=== PATIENT | female | born 1960 | race Caucasian/White ===

== ENCOUNTER → 2018-07-30 | Outpatient (CLI) | payer MEDICARE, OTHER ==
[~2018-07-30] MED LIST: ALBU3IS; ALBU3IS INH; ATOR10 PO; AZIT500 PO; BUDE6HFA INH; BUPR100 PO; DESV50 PO; FAMO20 PO; HYDACE5 PO; LISI5 PO; METF500 PO; NEOPOLDEXS OS; PENVK500 PO; PRED20 PO; SULF10OPSA OU; TIOT18 INH; ZIPR40 PO
[2018-07-30 14:47] LABS: Appearance, Urine Cloudy (Clear); Bilirubin, Urine Neg (Neg); Blood, Urine 4+ (Neg); Color, Urine Yellow (P-Yellow); Glucose Qualitative, Urine Neg (Neg); Ketones, Urine Neg (Neg); Leukocyte Esterase, Urine 3+ (Neg); Nitrite, Urine Pos (Neg); Protein, Urine 2+ (Neg); Specific Gravity, Urine 1.015 (1.003-1.022); Urobilinogen, Urine NORM (Normal); pH, Urine 6.5 (5.0-8.0)
[2018-07-30 15:24] LABS: White Blood Cells, Urine 25-50 /hpf (0-5)
[2018-07-30 15:25] LABS: Bacteria Many /hpf; Red Blood Cells, Urine 0-2 /hpf (0-2); Squamous Epithelial Cells Few /hpf (Few)
== END | disposition home or self-care (01) ==
LOC: LAB 14:07 → LAB SHORT 14:07
DX: N39.0 Urinary tract infection, site not specified (principal)
CPT/HCPCS: 81001; 87077; 87086; 87186

== ENCOUNTER 2018-11-07 07:07 | Day surgery (SDC) | payer MEDICARE, OTHER ==
--- NOTE | 2018-11-07 07:51 | NUR ---
History, Chart, Medications and Allergies reviewed before start of procedure. Patient States Post-Procedure ride home has been arranged. Patient states colon prep results clear.
--- NOTE | 2018-11-07 08:28 | NUR ---
11/07/18 0827 Faisal Napoles History, Chart, Medications and Allergies reviewed before start of procedure.MONITOR INTACT WITH CONTINUOUS PULSE OXIMETRY AND INTERMITTENT BP.3-LEAD EKG REVIEWED WITH PHYSICIAN PRIOR TO START OF PROCEDURE.O2 VIA N/C INTACT THROUGHOUT SEDATION/PROCEDURE. Patient confirms NPO status and agrees with scheduled surgery.See Anesthesia record.
--- NOTE | 2018-11-07 09:09 | NUR ---
Discharge instructions reviewed with patient. Patient verbalizes understanding. Copy given to patient to take home. Discharged via wheelchair to private car for ride home.
== END 2018-11-07 09:10 | disposition home or self-care (01) ==
LOC: ORSCMMR 07:07 → ORD 08:15 → ORSCMMR 09:10
PROVIDERS: Internal Medicine Gastroenterology
PROC: 0DBP8ZX Excision of Rectum, Via Natural or Artificial Opening Endoscopic, Diagnostic (ICD-10-PCS; principal; 2018-11-07 08:15)
PROC: 0DBN8ZX Excision of Sigmoid Colon, Via Natural or Artificial Opening Endoscopic, Diagnostic (ICD-10-PCS; principal; 2018-11-07 08:15)
DX: Z12.11 Encounter for screening for malignant neoplasm of colon (principal); D12.5 Benign neoplasm of sigmoid colon; D12.8 Benign neoplasm of rectum; K63.5 Polyp of colon; J44.9 Chronic obstructive pulmonary disease, unspecified; I10 Essential (primary) hypertension; G47.33 Obstructive sleep apnea (adult) (pediatric); E11.9 Type 2 diabetes mellitus without complications; E66.01 Morbid (severe) obesity due to excess calories; Z68.43 Body mass index [BMI] 50.0-59.9, adult; Z79.899 Other long term (current) drug therapy
CPT/HCPCS: 82947; 88305; J2704; J7120

== ENCOUNTER → 2019-02-19 | Outpatient (CLI) | payer MEDICARE, OTHER ==
[2019-02-19 12:49] LABS: Source, Urine Clean Catch
[2019-02-19 13:11] LABS: Appearance, Urine Hazy (Clear); Bilirubin, Urine Neg (Neg); Blood, Urine 3+ (Neg); Color, Urine Yellow (P-Yellow); Glucose Qualitative, Urine Neg (Neg); Ketones, Urine 2+ (Neg); Leukocyte Esterase, Urine 3+ (Neg); Nitrite, Urine Pos (Neg); Protein, Urine 2+ (Neg); Urobilinogen, Urine 1+ (Normal)
[2019-02-19 13:46] LABS: Bacteria Many /hpf; Squamous Epithelial Cells Mod /hpf (Few); White Blood Cells, Urine 50-100 /hpf (0-5)
[2019-02-19 14:20] LABS: Creatinine, Urine Random 82.3 mg/dL (27.00-270.00); Protein, Urine Random 24.9 mg/dL (0.0-11.9)
== END | disposition home or self-care (01) ==
LOC: LAB SHORT 10:42 → LAB 10:42
PROVIDERS: Internal Medicine
DX: R80.9 Proteinuria, unspecified (principal)
CPT/HCPCS: 81001; 82570; 84156; 87077; 87086; 87186

== ENCOUNTER 2021-09-21 11:03 | Inpatient (IN) | payer MEDICARE, OTHER ==
[~2021-09-21] VITALS: Ht 165.1 cm; Wt 153.8 kg
[2021-09-21] MEDS ORDERED: LOSA50 PO (12:39)
[2021-09-21] MEDS ORDERED: FURO20 PO (12:39)
[2021-09-21] MEDS ORDERED: POTA10T PO (12:40)
[2021-09-21] MEDS ORDERED: LAMO100 PO (12:41)
[2021-09-21] MEDS ORDERED: CLON.5 PO (12:42)
[2021-09-21] MEDS ORDERED: PIOG15 PO (12:47)
[2021-09-21 13:10] LABS: Source, Urine Clean Catch
[2021-09-21 13:21] LABS: Appearance, Urine Turbid (Clear); Blood, Urine 4+ (Neg); Color, Urine Amber (P-Yellow); Glucose Qualitative, Urine Neg (Neg); Ketones, Urine 4+ (Neg); Leukocyte Esterase, Urine 3+ (Neg); Nitrite, Urine Neg (Neg); Protein, Urine 3+ (Neg); Urobilinogen, Urine 3+ (Normal)
[2021-09-21 13:45] LABS: BASOPHILS ABSOLUTE AUTO 0.05 K/mm3 (0.00-0.23); BASOPHILS PERCENT AUTO 0 % (0-2); EOSINOPHILS ABSOLUTE AUTO 0.03 K/mm3 (0.00-0.68); EOSINOPHILS PERCENT AUTO 0 % (0-6); Hematocrit 40.2 % (33.0-51.0); Hemoglobin 14.8 g/dL (11.5-16.0); IMMATURE GRAN ABSOLUTE AUTO 0.23 K/mm3 (0.00-0.10); IMMATURE GRAN PERCENT AUTO 2 % (0-1); LYMPHOCYTES ABSOLUTE AUTO 0.63 K/mm3 (0.84-5.20); LYMPHOCYTES PERCENT AUTO 4 % (21-46); MONOCYTES ABSOLUTE AUTO 0.89 K/mm3 (0.16-1.47); MONOCYTES PERCENT AUTO 6 % (4-13); Mean Corpuscular HGB 34.5 pg (26.0-34.0); Mean Corpuscular HGB Conc 36.8 g/dL (31.5-36.5); Mean Corpuscular Volume 94 fL (80-100); Mean Platelet Volume 9.6 fL (9.1-12.4); NEUTROPHILS ABSOLUTE AUTO 12.66 K/mm3 (1.96-9.15); NEUTROPHILS PERCENT AUTO 88 % (41-73); Platelet Count 300 K/mm3 (150-400); RDW Coefficient Variation 13.5 % (11.7-14.2); Red Blood Cell Count 4.29 M/mm3 (3.80-5.20); White Blood Cell Count 14.49 K/mm3 (4.00-11.30)
[2021-09-21 14:01] LABS: Alanine Aminotransfer (ALT/SGP 72 U/L (12-78); Albumin, Blood 3.5 g/dL (3.4-5.0); Albumin/Globulin Ratio 0.8 (0.8-1.8); Alk Phos 139 U/L (50-136); Anion Gap 10 mmol/L (6-16); Aspartate Aminotrans (AST/SGOT 91 U/L (12-37); Bilirubin, Total 3.1 mg/dL (0.1-1.0); Blood Urea Nitrogen 7 mg/dL (8-24); Bun/Creatinine Ratio 20.7 (12.0-20.0); CO2, Blood 30 mmol/L (21-32); Calcium, Blood 8.1 mg/dL (8.5-10.1); Chloride, Blood 72 mmol/L (98-108); Creatinine, Blood 0.34 mg/dL (0.40-1.00); Globulin, Blood 4.2 g/dL (2.2-4.0); Glomerular Filtration Rate >60 (60-); Glucose, Blood 129 mg/dL (70-99); Potassium, Blood 4.6 mmol/L (3.5-5.5); Sodium, Blood 112 mmol/L (136-145); Total Protein, Blood 7.7 g/dL (6.4-8.2)
[2021-09-21 14:08] LABS: Bilirubin, Urine 1+ (Neg)
[2021-09-21 14:10] LABS: White Blood Cells, Urine 50-100 /hpf (0-5)
[2021-09-21 14:11] LABS: Bacteria Many /hpf; Squamous Epithelial Cells Many /hpf (Few)
[2021-09-21 15:02] LABS: Albumin, Blood 3.2 g/dL (3.4-5.0); Albumin/Globulin Ratio 0.9 (0.8-1.8); Bilirubin, Direct 1.1 mg/dL (0.0-0.3); Bilirubin, Indirect 1.5 mg/dL (0.1-0.7); Bilirubin, Total 2.6 mg/dL (0.1-1.0); Globulin, Blood 3.7 g/dL (2.2-4.0); Total Protein, Blood 6.9 g/dL (6.4-8.2)
[2021-09-21 15:53] LABS: Base Excess Venous 7.5 mmol/L; Bicarbonate Venous 30.1 mmol/L (24.0-30.0); PCO2 Venous 48.8 mmHg (38-42); PO2 Venous 98.8 mmHg (38-42); pH Blood Venous 7.42 (7.34-7.37)
[2021-09-21 17:49] LABS: Albumin, Blood 3.4 g/dL (3.4-5.0); Anion Gap 9 mmol/L (6-16); Blood Urea Nitrogen 7 mg/dL (8-24); Bun/Creatinine Ratio 18.2 (12.0-20.0); CO2, Blood 27 mmol/L (21-32); Chloride, Blood 75 mmol/L (98-108); Creatinine, Blood 0.39 mg/dL (0.40-1.00); Glomerular Filtration Rate >60 (60-); Glucose, Blood 132 mg/dL (70-99); Phosphorus, Blood 2.4 mg/dL (2.5-4.9); Potassium, Blood 4.2 mmol/L (3.5-5.5); Sodium, Blood 111 mmol/L (136-145)
[2021-09-21 18:59] LABS: Influenza A, PCR NEGATIVE (NEGATIVE); Influenza B, PCR NEGATIVE (NEGATIVE); Resp Syncytial Virus, PCR NEGATIVE (NEGATIVE); SARS-Cov-2 (COVID-19) PCR, MMC NEGATIVE (NEGATIVE)
--- NOTE | 2021-09-21 19:22 | NUR ---
ASSUMPTION OF CARE: Received report from SHELLEY Howard. Pt settled into PCU. IVF started per MD order and labs collected. Pt in no apparent distress at this time. Will continue to monitor until transfer of care to oncoming RN.
[2021-09-22 01:23] LABS: Source, Urine Foley catheter
[2021-09-22 01:25] LABS: Bilirubin, Urine Neg (Neg); Blood, Urine 3+ (Neg); Glucose Qualitative, Urine Neg (Neg); Ketones, Urine 3+ (Neg); Leukocyte Esterase, Urine 3+ (Neg); Nitrite, Urine Pos (Neg); Protein, Urine 2+ (Neg); Specific Gravity, Urine 1.015 (1.003-1.022); Urobilinogen, Urine 1+ (Normal)
--- NOTE | 2021-09-22 01:28 | NUR ---
UPDATE PT REPORTS SEVERE PAIN D/T FALL. REPORTING PAIN AT 01/26. PHYSICIAN NOTIFIED. ORDERS FOR FENT 25-50 MCG PRN Q 4.
[2021-09-22 01:42] LABS: Appearance, Urine Hazy (Clear); Color, Urine Yellow (P-Yellow)
[2021-09-22 01:43] LABS: Amorphous Light (0-Heavy); Bacteria Mod /hpf; Mucus Light (0-Heavy); Red Blood Cells, Urine Rare /hpf (0-2); Squamous Epithelial Cells Not Seen /hpf (Few)
[2021-09-22 01:44] LABS: White Blood Cells, Urine TNTC /hpf (0-5)
[2021-09-22 04:50] LABS: BASOPHILS ABSOLUTE AUTO 0.02 K/mm3 (0.00-0.23); BASOPHILS PERCENT AUTO 0 % (0-2); EOSINOPHILS PERCENT AUTO 0 % (0-6); Hematocrit 37.9 % (33.0-51.0); Hemoglobin 13.7 g/dL (11.5-16.0); IMMATURE GRAN ABSOLUTE AUTO 0.19 K/mm3 (0.00-0.10); IMMATURE GRAN PERCENT AUTO 1 % (0-1); LYMPHOCYTES ABSOLUTE AUTO 0.28 K/mm3 (0.84-5.20); LYMPHOCYTES PERCENT AUTO 2 % (21-46); MONOCYTES PERCENT AUTO 2 % (4-13); Mean Corpuscular HGB 33.9 pg (26.0-34.0); Mean Corpuscular HGB Conc 36.1 g/dL (31.5-36.5); Mean Corpuscular Volume 94 fL (80-100); Mean Platelet Volume 9.1 fL (9.1-12.4); NEUTROPHILS ABSOLUTE AUTO 13.31 K/mm3 (1.96-9.15); NEUTROPHILS PERCENT AUTO 95 % (41-73); Platelet Count 297 K/mm3 (150-400); RDW Coefficient Variation 13.4 % (11.7-14.2); RDW Standard Deviation 45.8 fL (35.1-46.3); Red Blood Cell Count 4.04 M/mm3 (3.80-5.20)
[2021-09-22 05:19] LABS: Alanine Aminotransfer (ALT/SGP 63 U/L (12-78); Albumin, Blood 3.3 g/dL (3.4-5.0); Albumin/Globulin Ratio 0.9 (0.8-1.8); Alk Phos 115 U/L (50-136); Anion Gap 9 mmol/L (6-16); Aspartate Aminotrans (AST/SGOT 63 U/L (12-37); Blood Urea Nitrogen 8 mg/dL (8-24); Bun/Creatinine Ratio 18.3 (12.0-20.0); CO2, Blood 33 mmol/L (21-32); Calcium, Blood 8.2 mg/dL (8.5-10.1); Chloride, Blood 73 mmol/L (98-108); Creatinine, Blood 0.44 mg/dL (0.40-1.00); Globulin, Blood 3.8 g/dL (2.2-4.0); Glomerular Filtration Rate >60 (60-); Glucose, Blood 150 mg/dL (70-99); Potassium, Blood 4.1 mmol/L (3.5-5.5); Sodium, Blood 115 mmol/L (136-145); Total Protein, Blood 7.1 g/dL (6.4-8.2)
--- NOTE | 2021-09-22 07:33 | NUR ---
SHIFT SUMMARY PT ALERT AND ORIENTEED X 4. PT HAVING VIVID HALLUCINATIONS T/O SHIFT. PHYSICIAN AWARE. PT REPORTS [place] DURING SHIFT PHYSICIAN NOTIFIED, INSTRUCTED TO CONT TO MONITOR. PT ABLE TO TURN SELF IN BED. BED ALARM IN PLACE, PT VERY IMPULSIVE, ATTEMPTING TO GET OUT OF BED FREQUENTLY. CANNON ORDERED AND PLACED TO GRAVITY. PT TOLERATED WELL. DR. JOHNSON CONSULTED. ORDERS PLACED PER DR. JOHNSON, SEE EMAR. HR STABLE. BP STABLE. NO CP OR PRESSURE REPORTED. PT REPORTS BACK PAIN, MEDICATION ORDERED SEE EMAR. DID NOT MEDICATE, PT REPORTED TO FEEL RELIEF W/O MEDICATION. OXYGEN SATURATION MAINTAINED ABOVE 92% ON 4 L VIA NC. ORDERS FOR CPAP. PER RT NONE AVAILABLE. PT HAS EXTENSIVE BRUISING D/T FALL AT HOME. PICS IN CHART. ORDERS FOR CTA OF CHEST DURING SHIFT D/T ELEVATED D DIMER.PT TO CT DURING SHIFT CHANGE. UNABLE TO DO CT DURING SHIFT D/T PT HAVING CT SCAN DURING DAY 4/5 W/IODINE. PHYSICIAN AWARE SCAN UNABLE TO BE DONE DURING NIGHT. PT HAVING INCREASE IN HALLUCINATIONS NIGHT PROGRESSED. PHYSICIAN AWARE. REPORT GIVEN TO SHELLEY TORRE.
[2021-09-22 09:15] LABS: Potassium, Blood 3.8 mmol/L (3.5-5.5)
--- NOTE | 2021-09-22 09:35 | NUR ---
UPDATE NEPHROLOGY NOTIFIED OF 09:00 Rp=[phone]. MD ORDERED STAT NA AND K LAB TO BE DRAWN AT 12:00 TODAY, NOTIFY MD WITH RESULTS. WILL CONTINUE TO MONITOR.
--- NOTE | 2021-09-22 10:21 | NUR ---
UPDATE PT INCREASINGLY MORE LETHARGIC AND DIFFICULT TO AROUSE. ASLO, BILAT FEET APPEAR INCREASINGLY MORE DUSKY, PALPABLE PULSES PRESENT. PT IS CURRENTLY ON BIPAP. NOTIFIED- STAT ABG ORDERED. CN INFORMED OF CURRENT POC. WILL CONTINUE TO MONITOR.
[2021-09-22 10:47] LABS: PCO2 Arterial 58.4 mmHg (35-45); PO2 Arterial 57.3 mmHg (80-100); pH Blood Arterial 7.43 (7.35-7.45)
--- NOTE | 2021-09-22 12:08 | NUR ---
TRANSFER OF CARE Pt transferring to ICU. Report called to SHELLEY Matthew. Pending results from labs drawn STAT. Notified SHELLEY Matthew to report Na values to Dr. Russell before 13:00.
[2021-09-22 12:09] LABS: U Amphetamine Screen Not Detected; U Barbituate Screen Not Detected; U Benzodiazapine Screen Not Detected; U Buprenorphine Screen Not Detected; U Cannabinoids Screen Not Detected; U Cocaine Screen Not Detected; U Methadone Screen Not Detected; U Methamphetamine Screen Not Detected; U Opiates Screen Not Detected; U Oxycodone Screen Not Detected; U Phencyclidine Screen Not Detected; U Propoxyphene Screen Not Detected
[2021-09-22 12:31] LABS: Anion Gap 8 mmol/L (6-16); Blood Urea Nitrogen 8 mg/dL (8-24); Bun/Creatinine Ratio 16.8 (12.0-20.0); CO2, Blood 35 mmol/L (21-32); Calcium, Blood 8.1 mg/dL (8.5-10.1); Chloride, Blood 76 mmol/L (98-108); Creatinine, Blood 0.48 mg/dL (0.40-1.00); Glomerular Filtration Rate >60 (60-); Glucose, Blood 158 mg/dL (70-99); Potassium, Blood 3.5 mmol/L (3.5-5.5); Sodium, Blood 119 mmol/L (136-145)
--- NOTE | 2021-09-22 14:12 | NUR ---
ASSUMPTION OF CARE RECEIVED REPORT FROM TIA RN AT 1158, PATIENT ARRIVED TO UNIT AT 1230. NON-RESPONSIVE, ON BIPAP 05/04 WITH 3L 02 BLEED IN. 4 PERSON TRANSFER TO BED, PATIENT AWOKE ONCE TRANSFERRED, COMMUNICATED WITH GARBLED SPEECH AND DID NOT FOLLOW COMMANDS. WITHIN 30 MINUTES OF ARRIVING TO UNIT, PATIENT AWOKE, A/O BUT FORGETFUL. EXPLAINED AND EDUCATED PATIENT REGARDING ARRIVAL TO HOSPITAL, LAB VALUES AND MEDICATIONS, AND RECENT TRANSFER TO ICU. PATIENT CONTACTED TWO PEOPLE VIA CELL PHONE STATING ONE WAS HER SON. REPORTED TO EACH PERSON HER CURRENT STAY IN THE HOSPITAL AND DETAILS SURROUNDING HER CARE ACCURATELY. AT THIS TIME PATIENT IS ON 3L 02 VIA NC, 02 SATS 88-95%, VITALS STABLE, REMAINS FORGETFUL BUT EASILY REORIENTED TO SITUATION. CALL LIGHT IN REACH.
--- NOTE | 2021-09-22 16:11 | NUR ---
REASSESSMENT PATIENT CURRENTLY SLEEPING WITH BIPAP 18/10, 4L 02 BLEED IN. AWAKENS TO VERBAL STIMULI. VITALS REMAIN STABLE.
[2021-09-22 16:36] LABS: PCO2 Arterial 59.8 mmHg (35-45); PO2 Arterial 53.8 mmHg (80-100); pH Blood Arterial 7.45 (7.35-7.45)
[2021-09-22 17:31] LABS: Albumin, Blood 3.3 g/dL (3.4-5.0); Anion Gap 7 mmol/L (6-16); Blood Urea Nitrogen 7 mg/dL (8-24); Bun/Creatinine Ratio 14.8 (12.0-20.0); CO2, Blood 39 mmol/L (21-32); Calcium, Blood 8.7 mg/dL (8.5-10.1); Chloride, Blood 79 mmol/L (98-108); Creatinine, Blood 0.47 mg/dL (0.40-1.00); Glomerular Filtration Rate >60 (60-); Glucose, Blood 161 mg/dL (70-99); Phosphorus, Blood 2.8 mg/dL (2.5-4.9); Potassium, Blood 3.7 mmol/L (3.5-5.5); Sodium, Blood 125 mmol/L (136-145)
--- NOTE | 2021-09-22 18:01 | NUR ---
SHIFT SUMMARY PATIENT TRANSFERRED TO UNIT PREVIOUSLY CHARTED FOR BIPAP REQUIREMENT AND DECREASED LOC. PATIENT AROUSABLE, A/O WHEN AWAKE BUT FORGETFUL. LABS WERE REPORTED TO DR. JOHNSON WITH ORDERS RECEIVED. DR. PERALTA CONSULTED, ABG DRAWN AND BIPAP INTERMITTENTLY USED WHEN ASLEEP. SODIUM LEVEL DRAWN AT [address] JOHNSON WITH ORDERS FOR D5 AT 50ML/HR. WILL START SOON AVAILABLE FROM PHARMACY AND RECHECK SODIUM AT 1900. WILL CONTINUE TO MONITOR AND REPORT TO ONCOMING RN.
--- NOTE | 2021-09-22 19:23 | NUR ---
CALL TO MD CALL TO DR JOHNSON WITH NA LEVEL OF 125. RECEIVED ORDER FOR NA LEVEL AT 2100 AND INCREASED D5 TO 100 ML/HR.
--- NOTE | 2021-09-22 19:30 | NUR ---
ASSESSMENT/ASSUMED CARE PT SLEEPING, HARD TO AWAKEN EXCEPT WITH PAINFUL STIMULI. DIFFICULT FOR PATIET TO STAY AWAKE DURING ASSESSMENT UNTIL ROLLING AND REPOSITIONING. LUNGS DECREASED THROUGHOUT ON BIPAP WITH 4 LITER O2 BLED IN. RESP EVEN AND NONLABORED. HEART RATE REGULAR TACHY 100-110. BP STABLE. BT+ ABD SOFT AND NONTENDER. DENIES N/V. SPEECH CLEAR AND SLOW. POWER GLIDE TO RIGHT UPPER ARM WITH D5 AT 100 ML/HR. SITE CLEAR, DRSG INTACT. IV TO RIGHT HAND WITH NS AT 10 ML/HR FOR ANTIBIOTICS. SITE CLEAR. CANNON CATH PATENT DRAINING YELLOW URINE. PT BOOSTED IN BED AND REPOSITIONED TO LEFT WITH HOB UP. BRUISES NOTED TO BOTTOM AND BACK FROM FALLING AT HOME.
--- NOTE | 2021-09-22 21:18 | NUR ---
LABS RESULTS DR JOHNSON NOTIFIED REGARDING SODIUM LEVEL 124. REPEAT SODIUM LEVEL AT 2300. CONT D5 AT 100 ML/HR.
--- NOTE | 2021-09-22 21:34 | NUR ---
BIPAP RT SPO2 DOWN TO 85% WITH BIPAP ON. BIPAP SETTINGS 18/10 WITH 4 LITERS O2. RT INCREASED O2 TO 5 LITERS VIA BIPAP. PT SLEEPING.
--- NOTE | 2021-09-22 23:40 | NUR ---
LABS SODIUM LEVEL [address] JOHNSON. SEE NEW ORDERS
--- NOTE | 2021-09-23 02:28 | NUR ---
PAIN PT C/O PAIN TO NECK, BACK AND HEADACHE. STATES,"I NORMALLY TAKE TRAMADOL AT HOME FOR PAIN". CALL TO DR HILLIARD REGARDING PAIN SEE NEW ORDER
[2021-09-23 03:16] LABS: BASOPHILS ABSOLUTE AUTO 0.02 K/mm3 (0.00-0.23); BASOPHILS PERCENT AUTO 0 % (0-2); EOSINOPHILS ABSOLUTE AUTO 0.06 K/mm3 (0.00-0.68); EOSINOPHILS PERCENT AUTO 0 % (0-6); Hematocrit 39.4 % (33.0-51.0); Hemoglobin 13.6 g/dL (11.5-16.0); IMMATURE GRAN ABSOLUTE AUTO 0.19 K/mm3 (0.00-0.10); IMMATURE GRAN PERCENT AUTO 1 % (0-1); LYMPHOCYTES PERCENT AUTO 2 % (21-46); MONOCYTES ABSOLUTE AUTO 0.86 K/mm3 (0.16-1.47); MONOCYTES PERCENT AUTO 6 % (4-13); Mean Corpuscular HGB 33.8 pg (26.0-34.0); Mean Corpuscular HGB Conc 34.5 g/dL (31.5-36.5); Mean Corpuscular Volume 98 fL (80-100); Mean Platelet Volume 8.8 fL (9.1-12.4); NEUTROPHILS ABSOLUTE AUTO 13.58 K/mm3 (1.96-9.15); NEUTROPHILS PERCENT AUTO 91 % (41-73); Platelet Count 302 K/mm3 (150-400); RDW Coefficient Variation 14.2 % (11.7-14.2); Red Blood Cell Count 4.02 M/mm3 (3.80-5.20); White Blood Cell Count 15.01 K/mm3 (4.00-11.30)
[2021-09-23 03:32] LABS: Albumin, Blood 3.1 g/dL (3.4-5.0); Anion Gap 7 mmol/L (6-16); Blood Urea Nitrogen 14 mg/dL (8-24); Bun/Creatinine Ratio 23.3 (12.0-20.0); CO2, Blood 40 mmol/L (21-32); Calcium, Blood 8.4 mg/dL (8.5-10.1); Chloride, Blood 79 mmol/L (98-108); Glomerular Filtration Rate >60 (60-); Glucose, Blood 196 mg/dL (70-99); Magnesium, Blood 2.1 mg/dL (1.6-2.4); Phosphorus, Blood 2.9 mg/dL (2.5-4.9); Potassium, Blood 3.5 mmol/L (3.5-5.5); Sodium, Blood 126 mmol/L (136-145)
--- NOTE | 2021-09-23 03:49 | NUR ---
LABS CALL TO DR JOHNSON WITH LABS. SODIUM 126, WILL RECHECK AT 0600
--- NOTE | 2021-09-23 06:09 | NUR ---
SHIFT SUMMARY PT SLEPT MOST OF THE NIGHT. SODIUM LEVEL CHECKED DURING THE NIGHT. INCREASED D5 TO 150 ML/HR DUE TO SODIUM LEVEL. HEART RATE REGULAR. BP STABLE. PT TURNED Q2HRS. BIPAP ON DURING THE NIGHT 18/10 5 LITERS O2 WITH BREAKS AND ON 5 LITER NS FOR SNACKS AND ORAL CARE. PT HAD TWO SNACKS DURING THE NIGHT. REPORT TO ON COMING NURSE
--- NOTE | 2021-09-23 13:17 | NUR ---
REPORTED SODIUM LEVEL TO DR JOHNSON, INCREASED SODIUM TABS, ANOTHER SODIUM TO BE DRAWN AT 1800, AND RESULTS CALLED TO DR JOHNSON WITH IN AN HOUR
--- NOTE | 2021-09-23 17:40 | NUR ---
PATIENT TRANSFERRED TO PCU 20, REPORT TO TYRONE TENA RN, PATIENT ALERT AND ORIENTED X4, MAKES NEEDS KNOWN, TOLERATED TRANSFER WITH EASE, NC 4L O2, PATIENT IN BED IN PCU 20
--- NOTE | 2021-09-23 18:33 | NUR ---
PCU ARRIVAL / SHIFT SUMMARY PT BROUGHT TO PCU-20 BY BED FROM ICU @ APPROX 1730. PT A&O X4, ABLE TO STAND AND TRANSFER FROM ICU BED TO PCU BED W/ SBA. PT VSS. SPO2 > 92% ON 4L NC. MONITOR SHOWING SR, HR 80's. CANNON CATH PATENT & DRAINING. 1800 SODIUM LEVEL DRAWN, RESULTS PENDING W/ RESULTS TO BE CALLED TO MD JOHNSON. WILL CONTINUE TO MONITOR & PROVIDE CARE UNTIL REPORT OFF TO FACILITIES PLANNER RN.
[2021-09-23 21:31] LABS: Potassium, Blood 3.8 mmol/L (3.5-5.5)
[2021-09-24 00:55] LABS: Vancomycin, Trough 12.5 ug/mL (5.0-10.0)
[2021-09-24 04:32] LABS: Hematocrit 39.1 % (33.0-51.0); Hemoglobin 13.1 g/dL (11.5-16.0)
[2021-09-24 04:51] LABS: Albumin, Blood 3.1 g/dL (3.4-5.0); Anion Gap 5 mmol/L (6-16); Blood Urea Nitrogen 21 mg/dL (8-24); Bun/Creatinine Ratio 31.8 (12.0-20.0); CO2, Blood 40 mmol/L (21-32); Calcium, Blood 8.6 mg/dL (8.5-10.1); Chloride, Blood 84 mmol/L (98-108); Creatinine, Blood 0.66 mg/dL (0.40-1.00); Glomerular Filtration Rate >60 (60-); Glucose, Blood 217 mg/dL (70-99); Magnesium, Blood 2.2 mg/dL (1.6-2.4); Phosphorus, Blood 3.6 mg/dL (2.5-4.9); Potassium, Blood 3.8 mmol/L (3.5-5.5); Sodium, Blood 129 mmol/L (136-145)
--- NOTE | 2021-09-24 05:20 | NUR ---
SHIFT SUMMARY PT ALERT AND ORIENTED X4. ON 4L NC WHILE AWAKE. ON BIPAP AT NIGHT. SATS OVER 92%. BP STABLE. AFEBRILE. HR SR 80-90'S. REQUESTED SUPPOSITORY, NO BOWEL MOVEMENT SINCE LAST MONDAY. MULITPLE BM'S SINCE. NANI PG PATENT AND DRAWS. CANNON IN PLACE DRAINING DARK YELLOW URINE TO GRAVITY. LUNG SOUNDS WHEEZY, R/T NOTIFIED. SODIUM IMPROVING. PT IN BED WATCHING TV WITH CALL ALARM AT SIDE. WILL CONTINUE TO MONITOR UNTIL REPORT GIVEN TO DAYSHIFT RN
[2021-09-24] MEDS ORDERED: TRAM50 PO (14:40)
[2021-09-24] MEDS ORDERED: ANORO ELLIPTA1 EACH INH (14:41)
[2021-09-24] MEDS ORDERED: ASPI81CH PO (14:48)
[2021-09-24] MEDS ORDERED: GUAI600T33 PO (14:48)
[2021-09-24] MEDS ORDERED: B-1100 M1 PO (14:49)
[2021-09-24] MEDS ORDERED: FOLIC ACID0.4 MG PO (14:50)
--- NOTE | 2021-09-24 16:53 | NUR ---
DISCHARGE HOME PT A&Ox4, VSS, SPO2>92% ON RA. DISCHARGE INSTRUCTIONS REVIEWED WITH PATIENT. PT TAKEN OUT BY WHEELCHAIR WITH BELONGINGS AT APPROXIMATELY 1630.
--- NOTE | 2021-09-24 16:58 | NUR ---
THIS NURSE AGREES W/ STUDENT NURSE DOCUMENTATION DURING THIS SHIFT.
--- NOTE | 2021-09-27 15:28 | NUR ---
Received referral from [facility] Cemetery Manager (Sera Latham) on 09/27/2021. Patient discharged 09/24/2021 with orders for home health and elected [facility]. Contacted patient at number provided on demographic sheet to further discuss the above. Patient is agreeable to the above. Discussed homebound status definition with patient. Patient verbalized understanding. Discussed what home health is vs what it is not (in home caregivers/housekeeping). Patient verbalized understanding. Discussed the next steps in the process of an initial assessment to determine frequency of visits. Again patient verbalized understanding. Offered a chance for patient to ask questions regarding the above of which there were none. Gathered all supporting documentation for referral (face sheet, face to face, med list, H&P, discharge summary, and most recent PT assessment) and sent to [facility] for review. No further interventions required. Ashlee Han Referral Liaison
== END 2021-09-24 16:30 | disposition home or self-care (01) | DRG 177 ==
LOC: ER 11:03 → PCU 18:12 → ICUE 18:12 → PCU 18:30 → ICUE 09-22 12:22 → PCU 09-23 17:39
PROVIDERS: Internal Medicine; Internal Medicine Critical Care Medicine; Internal Medicine Nephrology; Student in an Organized Health Care Education/Training Program; ADMIT Hospitalist
DX: J69.0 Pneumonitis due to inhalation of food and vomit (principal); G92.8 Other toxic encephalopathy; J96.21 Acute and chronic respiratory failure with hypoxia; E87.0 Hyperosmolality and hypernatremia; J44.1 Chronic obstructive pulmonary disease with (acute) exacerbation; Z68.43 Body mass index [BMI] 50.0-59.9, adult; N39.0 Urinary tract infection, site not specified; L03.317 Cellulitis of buttock; E66.2 Morbid (severe) obesity with alveolar hypoventilation; Z20.822 Contact with and (suspected) exposure to COVID-19; F10.20 Alcohol dependence, uncomplicated; N18.2 Chronic kidney disease, stage 2 (mild); M79.7 Fibromyalgia; F41.9 Anxiety disorder, unspecified; F17.200 Nicotine dependence, unspecified, uncomplicated; F31.9 Bipolar disorder, unspecified; E78.5 Hyperlipidemia, unspecified; M19.90 Unspecified osteoarthritis, unspecified site; B96.1 Klebsiella pneumoniae [K. pneumoniae] as the cause of diseases classified elsewhere; K76.0 Fatty (change of) liver, not elsewhere classified; G89.4 Chronic pain syndrome; E78.00 Pure hypercholesterolemia, unspecified; Z98.51 Tubal ligation status; Z90.89 Acquired absence of other organs; Z98.891 History of uterine scar from previous surgery; Z88.8 Allergy status to other drugs, medicaments and biological substances; Z79.84 Long term (current) use of oral hypoglycemic drugs; Z79.899 Other long term (current) drug therapy
CPT/HCPCS: 0241U; 36415; 36600; 70450; 70491; 71045; 71260; 76882; 80048; 80053; 80069; 80076; 80202; 81001; 82436; 82550; 82803; 82947; 83605; 83735; 83880; 83930; 83935; 84132; 84145; 84295; 84300; 84484; 84550; 85014; 85018; 85025; 85379; 87070; 87077; 87086; 87186; 87205; 93005; 93010; 94640; 94644; 94660; 94664; 94762; 96365; 96366; 96375; 97110; 97116; 97162; 97166; 97530; 97535; 99285-25; A9270; C1751; J0295; J0456; J0696; J1650; J1940; J2543; J2920; J2930; J3370; J3411; J3480; J7030; J7050; J7070; J7512; Q9967

== ENCOUNTER 2021-10-06 14:05 | Emergency (ER) | payer MEDICARE, OTHER ==
[~2021-10-06] VITALS: Ht 165.1 cm; Wt 152.9 kg
[~2021-10-06 14:05] MED LIST changes: +ANORO ELLIPTA1 EACH INH; +ASPI81CH PO; +B-1100 M1 PO; +CLON.5 PO; +FOLIC ACID0.4 MG PO; +FURO20 PO; +GUAI600T33 PO; +LAMO100 PO; +LOSA50 PO; +PIOG15 PO; +POTA10T PO; +TRAM50 PO
[2021-10-06 15:20] LABS: BASOPHILS ABSOLUTE AUTO 0.06 K/mm3 (0.00-0.23); BASOPHILS PERCENT AUTO 1 % (0-2); EOSINOPHILS ABSOLUTE AUTO 0.17 K/mm3 (0.00-0.68); EOSINOPHILS PERCENT AUTO 2 % (0-6); Hematocrit 42.3 % (33.0-51.0); Hemoglobin 14.2 g/dL (11.5-16.0); IMMATURE GRAN ABSOLUTE AUTO 0.04 K/mm3 (0.00-0.10); IMMATURE GRAN PERCENT AUTO 1 % (0-1); LYMPHOCYTES PERCENT AUTO 13 % (21-46); MONOCYTES ABSOLUTE AUTO 0.78 K/mm3 (0.16-1.47); MONOCYTES PERCENT AUTO 10 % (4-13); Mean Corpuscular HGB 34.1 pg (26.0-34.0); Mean Corpuscular HGB Conc 33.6 g/dL (31.5-36.5); Mean Corpuscular Volume 102 fL (80-100); Mean Platelet Volume 8.8 fL (9.1-12.4); NEUTROPHILS ABSOLUTE AUTO 5.91 K/mm3 (1.96-9.15); NEUTROPHILS PERCENT AUTO 74 % (41-73); Platelet Count 307 K/mm3 (150-400); RDW Standard Deviation 56.2 fL (35.1-46.3); Red Blood Cell Count 4.16 M/mm3 (3.80-5.20); White Blood Cell Count 7.96 K/mm3 (4.00-11.30)
[2021-10-06 15:43] LABS: Alanine Aminotransfer (ALT/SGP 52 U/L (12-78); Albumin, Blood 3.5 g/dL (3.4-5.0); Alk Phos 104 U/L (50-136); Anion Gap 6 mmol/L (6-16); Aspartate Aminotrans (AST/SGOT 36 U/L (12-37); Bilirubin, Total 0.8 mg/dL (0.1-1.0); Blood Urea Nitrogen 6 mg/dL (8-24); Bun/Creatinine Ratio 8.8 (12.0-20.0); CO2, Blood 31 mmol/L (21-32); Calcium, Blood 8.8 mg/dL (8.5-10.1); Chloride, Blood 98 mmol/L (98-108); Creatinine, Blood 0.68 mg/dL (0.40-1.00); Globulin, Blood 3.6 g/dL (2.2-4.0); Glomerular Filtration Rate >60 (60-); Glucose, Blood 130 mg/dL (70-99); Potassium, Blood 3.9 mmol/L (3.5-5.5); Sodium, Blood 135 mmol/L (136-145); Total Protein, Blood 7.1 g/dL (6.4-8.2)
[2021-10-06] MEDS ORDERED: CLIN150 PO (15:59)
== END 2021-10-06 17:12 | disposition home or self-care (01) ==
LOC: ER 14:05
PROVIDERS: Physician Assistant
DX: L03.116 Cellulitis of left lower limb (principal); L03.115 Cellulitis of right lower limb; J44.9 Chronic obstructive pulmonary disease, unspecified; Z79.899 Other long term (current) drug therapy
CPT/HCPCS: 36415; 80053; 85025; 96365; 96375; 99283-25; J3010

== ENCOUNTER 2021-10-12 15:01 | Emergency (ER) | payer MEDICARE, OTHER ==
[~2021-10-12] VITALS: Ht 165.1 cm; Wt 154.2 kg
[~2021-10-12 15:01] MED LIST changes: +CLIN150 PO
[2021-10-12 16:11] LABS: BASOPHILS ABSOLUTE AUTO 0.04 K/mm3 (0.00-0.23); BASOPHILS PERCENT AUTO 1 % (0-2); EOSINOPHILS ABSOLUTE AUTO 0.16 K/mm3 (0.00-0.68); EOSINOPHILS PERCENT AUTO 2 % (0-6); Hematocrit 42.9 % (33.0-51.0); Hemoglobin 14.4 g/dL (11.5-16.0); IMMATURE GRAN ABSOLUTE AUTO 0.06 K/mm3 (0.00-0.10); IMMATURE GRAN PERCENT AUTO 1 % (0-1); LYMPHOCYTES ABSOLUTE AUTO 0.82 K/mm3 (0.84-5.20); LYMPHOCYTES PERCENT AUTO 10 % (21-46); MONOCYTES PERCENT AUTO 7 % (4-13); Mean Corpuscular HGB Conc 33.6 g/dL (31.5-36.5); Mean Corpuscular Volume 101 fL (80-100); Mean Platelet Volume 9.1 fL (9.1-12.4); NEUTROPHILS ABSOLUTE AUTO 6.96 K/mm3 (1.96-9.15); NEUTROPHILS PERCENT AUTO 81 % (41-73); Platelet Count 306 K/mm3 (150-400); RDW Coefficient Variation 14.4 % (11.7-14.2); Red Blood Cell Count 4.24 M/mm3 (3.80-5.20); White Blood Cell Count 8.64 K/mm3 (4.00-11.30)
[2021-10-12 16:54] LABS: Alanine Aminotransfer (ALT/SGP 41 U/L (12-78); Albumin, Blood 3.6 g/dL (3.4-5.0); Alk Phos 111 U/L (50-136); Anion Gap 7 mmol/L (6-16); Aspartate Aminotrans (AST/SGOT 30 U/L (12-37); Bilirubin, Total 0.7 mg/dL (0.1-1.0); Blood Urea Nitrogen 5 mg/dL (8-24); Bun/Creatinine Ratio 9.3 (12.0-20.0); CO2, Blood 31 mmol/L (21-32); Calcium, Blood 8.8 mg/dL (8.5-10.1); Chloride, Blood 95 mmol/L (98-108); Creatinine, Blood 0.54 mg/dL (0.40-1.00); Globulin, Blood 3.7 g/dL (2.2-4.0); Glomerular Filtration Rate >60 (60-); Glucose, Blood 181 mg/dL (70-99); Sodium, Blood 133 mmol/L (136-145); Total Protein, Blood 7.3 g/dL (6.4-8.2)
[2021-10-12 18:21] LABS: Source, Urine Clean Catch
[2021-10-12 18:23] LABS: Appearance, Urine Hazy (Clear); Bilirubin, Urine Neg (Neg); Blood, Urine 1+ (Neg); Color, Urine Yellow (P-Yellow); Glucose Qualitative, Urine Neg (Neg); Ketones, Urine Neg (Neg); Leukocyte Esterase, Urine 3+ (Neg); Nitrite, Urine Pos (Neg); Protein, Urine Neg (Neg); Urobilinogen, Urine NORM (Normal); pH, Urine 6.5 (5.0-8.0)
[2021-10-12 18:53] LABS: Bacteria Many /hpf; Red Blood Cells, Urine 0-2 /hpf (0-2); Squamous Epithelial Cells Few /hpf (Few)
== END 2021-10-12 20:03 | disposition home or self-care (01) ==
LOC: ER 15:01
PROVIDERS: Physician Assistant
DX: R60.9 Edema, unspecified (principal); L03.116 Cellulitis of left lower limb; L03.115 Cellulitis of right lower limb; Z88.5 Allergy status to narcotic agent; Z88.8 Allergy status to other drugs, medicaments and biological substances; Z79.899 Other long term (current) drug therapy; J44.9 Chronic obstructive pulmonary disease, unspecified
CPT/HCPCS: 36415; 71045; 74177; 80053; 81001; 83880; 85025; A9270; Q9967

== ENCOUNTER → 2021-12-22 | Outpatient (CLI) | payer MEDICARE, OTHER | END | disposition home or self-care (01) | LOC: LAB SHORT 11:18 → LAB 11:18 | DX: N39.0 Urinary tract infection, site not specified (principal) | CPT/HCPCS: 87077; 87086; 87186 ==

== ENCOUNTER → 2022-01-04 | Outpatient (CLI) | payer MEDICARE, OTHER ==
[2022-01-04 12:40] LABS: BASOPHILS ABSOLUTE AUTO 0.05 K/mm3 (0.00-0.23); BASOPHILS PERCENT AUTO 1 % (0-2); EOSINOPHILS ABSOLUTE AUTO 0.06 K/mm3 (0.00-0.68); EOSINOPHILS PERCENT AUTO 1 % (0-6); Hematocrit 42.4 % (33.0-51.0); Hemoglobin 15.7 g/dL (11.5-16.0); IMMATURE GRAN ABSOLUTE AUTO 0.05 K/mm3 (0.00-0.10); IMMATURE GRAN PERCENT AUTO 1 % (0-1); LYMPHOCYTES ABSOLUTE AUTO 1.13 K/mm3 (0.84-5.20); LYMPHOCYTES PERCENT AUTO 12 % (21-46); MONOCYTES ABSOLUTE AUTO 0.59 K/mm3 (0.16-1.47); MONOCYTES PERCENT AUTO 6 % (4-13); Mean Corpuscular HGB 34.2 pg (26.0-34.0); Mean Corpuscular Volume 92 fL (80-100); Mean Platelet Volume 9.2 fL (9.1-12.4); NEUTROPHILS ABSOLUTE AUTO 7.31 K/mm3 (1.96-9.15); NEUTROPHILS PERCENT AUTO 80 % (41-73); Platelet Count 307 K/mm3 (150-400); RDW Coefficient Variation 13.7 % (11.7-14.2); RDW Standard Deviation 46.2 fL (35.1-46.3); Red Blood Cell Count 4.59 M/mm3 (3.80-5.20); White Blood Cell Count 9.19 K/mm3 (4.00-11.30)
[2022-01-04 13:02] LABS: Albumin, Blood 3.8 g/dL (3.4-5.0); Bilirubin, Total 1.4 mg/dL (0.1-1.0); Bun/Creatinine Ratio 6.3 (12.0-20.0); Calcium, Blood 9.3 mg/dL (8.5-10.1); Creatinine, Blood 0.79 mg/dL (0.40-1.00); Potassium, Blood 3.4 mmol/L (3.5-5.5); Thyroid Stimulating Hormone 1.914 uIU/mL (0.360-4.800); Total Protein, Blood 7.8 g/dL (6.4-8.2)
== END ==
LOC: LAB SHORT 12:34 → LAB 12:34
PROVIDERS: Chiropractor
DX: N39.0 Urinary tract infection, site not specified (principal); R06.00 Dyspnea, unspecified; R53.83 Other fatigue
CPT/HCPCS: 80053; 83880; 84443; 84484; 85025; 87077; 87086; 87186

== ENCOUNTER → 2022-01-05 | Outpatient (CLI) | payer MEDICARE, OTHER ==
[2022-01-05 10:53] LABS: Bun/Creatinine Ratio 7.9 (12.0-20.0); Calcium, Blood 9.3 mg/dL (8.5-10.1); Creatinine, Blood 0.89 mg/dL (0.40-1.00); Potassium, Blood 3.6 mmol/L (3.5-5.5)
== END | disposition home or self-care (01) ==
LOC: LAB SHORT 10:35 → LAB 10:35
PROVIDERS: Chiropractor
DX: E87.1 Hypo-osmolality and hyponatremia (principal)
CPT/HCPCS: 80048

== ENCOUNTER → 2022-01-06 | Outpatient (CLI) | payer MEDICARE, OTHER ==
[2022-01-06 12:29] LABS: Creatinine, Blood 0.88 mg/dL (0.40-1.00); Potassium, Blood 3.4 mmol/L (3.5-5.5)
== END | disposition home or self-care (01) ==
LOC: LAB 12:21 → LAB SHORT 12:21
PROVIDERS: Chiropractor
DX: E87.1 Hypo-osmolality and hyponatremia (principal)
CPT/HCPCS: 80048